=== PATIENT | female | born 1985 | race Caucasian/White ===

== ENCOUNTER 2025-07-07 16:26 | Emergency (ER) | payer OTHER ==
[~2025-07-07] VITALS: Ht 172.7 cm; Wt 78.0 kg
[2025-07-07 17:46] VITALS: BP 114/78
[2025-07-07 18:02] LABS: BASO # 0.0 10^3/uL (0.0-0.2); BASO % 0.3 % (0.0-1.0); EOS # 0.1 10^3/uL (0.0-0.5); EOS % 2.1 % (0.0-3.0); LYMPH # 2.0 10^3/uL (1.5-5.0); LYMPH % 31.1 % (24.0-44.0); MONO # 0.4 10^3/uL (0.0-0.8); MONO % 5.8 % (2.0-8.0); NEUTROPHILS # 4.0 10^3/uL (1.5-8.5); NEUTROPHILS % 60.5 % (36.0-66.0); PLATELET COUNT, AUTOMATED 221 10^3/uL (150-450)
[2025-07-07 18:34] LABS: CALCIUM LEVEL 9.0 MG/DL (8.5-10.1); CARBON DIOXIDE LEVEL 29 MMOL/L (20-31); CHLORIDE LEVEL 106 MMOL/L (98-107); CREATININE FOR GFR 0.87 MG/DL (0.55-1.30); GLOMERULAR FILTRATION RATE 87.4 (>60); POTASSIUM SERUM 4.3 MMOL/L (3.5-5.1); SODIUM LEVEL 139 MMOL/L (136-145)
[2025-07-07 18:40] LABS: HCG, SERUM QUALITATIVE NEGATIVE (NEGATIVE)
[2025-07-07] MEDS ORDERED: ISOVUE-370 76% 100 ML VIAL As Ordered ONE (18:52)
[2025-07-07] MEDS ORDERED: HOME MED LIST COMPLETE! XX SCH (19:30)
[2025-07-07 20:01] VITALS: TEMP 97.3; O2SAT 99
== END 2025-07-07 20:38 | disposition home or self-care (01) ==
LOC: M ED 16:26
DX: S30.1XXA Contusion of abdominal wall, initial encounter (principal); V49.40XS Driver injured in collision with unspecified motor vehicles in traffic accident, sequela; Z88.0 Allergy status to penicillin; Y92.410 Unspecified street and highway as the place of occurrence of the external cause; Y93.89 Activity, other specified; Y99.9 Unspecified external cause status
CPT/HCPCS: 36415; 70450; 74177; 80048; 84703; 85025; 93041; 94760; 99284; Q9967